=== PATIENT | female | born 1960 ===

== ENCOUNTER → 2022-06-23 12:32 | Outpatient (CLI) | payer BC, SELFPAY ==
[2022-06-23 13:49] LABS: Influenza A - CEPHEID Flu A NEGATIVE (NEGATIVE); Influenza B - CEPHEID Flu B NEGATIVE (NEGATIVE)
[2022-06-23 13:53] LABS: COVID-19 CEPHEID 4-PLEX PCR Negative (Negative)
== END ==
PROVIDERS: Visit Provider Student in an Organized Health Care Education/Training Program
DX: R21 Rash and other nonspecific skin eruption (principal)
CPT/HCPCS: 0240U

== ENCOUNTER → 2022-10-07 07:37 | Outpatient (CLI) | payer BC, SELFPAY ==
[2022-10-07 08:03] LABS: Hematocrit 36.8 % (36-46); Hemoglobin 12.6 g/dL (12.0-16.0); Mean Corpuscular HGB Conc 34.3 % (30-36); Mean Corpuscular Hemoglobin 28.6 PG (26-34); Mean Corpuscular Volume 83.5 fL (80-100); Platelet Count 246 X10^3/uL (150-400); Red Blood Cell Count 4.41 X10^6/uL (4.0-5.2); Red Cell Distribution Width 14.4 % (11.6-14.8); White Blood Cell Count 5.8 X10^3/uL (4.5-11.0)
[2022-10-07 09:13] LABS: Alanine Aminotransferase 21 IU/L (<35); Albumin 4.2 g/dL (3.5-5.0); Albumin Globulin Ratio 1.6 (1.0-2.8); Alkaline Phosphatase 63 U/L (38-126); Aspartate Aminotransferase 32 IU/L (14-36); Bilirubin Total 0.9 mg/dL (0.2-1.3); Blood Urea Nitrogen 13 mg/dL (7-17); Calcium 9.2 mg/dL (8.4-10.2); Carbon Dioxide 26 mmol/L (22-32); Chloride 104 mmol/L (98-107); Cholesterol 195 mg/dL (140-199); Estimated Glomerular Filt Rate > 60 mL/min (>60); Globulin 2.7 g/dL (1.7-4.1); Glucose 83 mg/dL (80-110); HDL Cholesterol 74 mg/dL (40-60); HEMOLYSIS < 15 (0-50); LDL Cholesterol Calculated 107 mg/dL (<100); Potassium 3.9 mmol/L (3.4-5.1); Sodium 140 mmol/L (137-145); Total Protein 6.9 g/dL (6.3-8.2); Triglycerides 70 mg/dL (35-150)
[2022-10-07 09:26] LABS: Free T3, Triiodothyronine Free 3.76 pg/mL (2.77-5.27); Free T4, Direct Thyroxine 1.31 ng/dL (0.78-2.19)
[2022-10-07 09:39] LABS: Thyroid Stimulating Hormone 5.56 uIU/mL (0.47-4.68)
[2022-10-07 09:58] LABS: Hep C Virus Ab w/Reflex Quant NEGATIVE s/c (NEGATIVE)
== END ==
PROVIDERS: PCP Nurse Practitioner; Referring Provider Nurse Practitioner; Visit Provider Nurse Practitioner
DX: Z00.00 Encounter for general adult medical examination without abnormal findings (principal); Z11.59 Encounter for screening for other viral diseases
CPT/HCPCS: 36415; 80053; 80061; 84439; 84443; 84481; 85027; 86803

== ENCOUNTER → 2023-10-24 07:56 | Outpatient (CLI) | payer BC, SELFPAY ==
[2023-10-24 08:43] LABS: Hematocrit 38.3 % (36-46); Hemoglobin 13.1 g/dL (12.0-16.0); Mean Corpuscular HGB Conc 34.2 % (30-36); Mean Corpuscular Hemoglobin 28.8 PG (26-34); Mean Corpuscular Volume 84.4 fL (80-100); Platelet Count 242 X10^3/uL (150-400); Red Blood Cell Count 4.54 X10^6/uL (4.0-5.2); Red Cell Distribution Width 14.3 % (11.6-14.8); White Blood Cell Count 5.9 X10^3/uL (4.5-11.0)
[2023-10-24 09:08] LABS: Alanine Aminotransferase 16 IU/L (<35); Albumin 4.3 g/dL (3.5-5.0); Albumin Globulin Ratio 1.4 (1.0-2.8); Alkaline Phosphatase 51 U/L (38-126); Aspartate Aminotransferase 30 IU/L (14-36); BUN Creatinine Ratio 22.2 (6-22); Bilirubin Total 0.8 mg/dL (0.2-1.3); Blood Urea Nitrogen 14 mg/dL (7-17); Calcium 9.4 mg/dL (8.4-10.2); Carbon Dioxide 27 mmol/L (22-32); Chloride 108 mmol/L (98-107); Cholesterol 224 mg/dL (140-199); Estimated Glomerular Filt Rate > 60 mL/min (>60); Glucose 95 mg/dL (80-110); HDL Cholesterol 79 mg/dL (40-60); HEMOLYSIS < 15 (0-50); LDL Cholesterol Calculated 130 mg/dL (<100); Sodium 141 mmol/L (137-145); Total Protein 7.3 g/dL (6.3-8.2); Triglycerides 74 mg/dL (35-150)
[2023-10-24 09:18] LABS: Creatinine Urine Random 170.7 mg/dL
[2023-10-24 09:21] LABS: Microalbumi Creatinin Ratio Ur 6.4 ug/mg CR (<30); Microalbumin Urine Random 1.1 mg/dL (0-1.6)
[2023-10-24 11:14] LABS: Free T4, Direct Thyroxine 0.96 ng/dL (0.78-2.19)
[2023-10-24 11:28] LABS: Thyroid Stimulating Hormone 7.73 uIU/mL (0.47-4.68)
[2023-10-24 16:42] LABS: HIV 1 & 2 Ab/Ag 4th Gen Combo NEGATIVE (NEGATIVE)
== END ==
PROVIDERS: PCP Nurse Practitioner; Referring Provider Nurse Practitioner; Visit Provider Nurse Practitioner
DX: Z00.00 Encounter for general adult medical examination without abnormal findings (principal)
CPT/HCPCS: 36415; 80053; 80061; 82043; 82570; 84439; 84443; 85027; 87389

== ENCOUNTER 2024-03-05 09:36 | Day surgery (SDC) | payer BC, SELFPAY ==
[2024-03-05 10:02] VITALS: BP 134/72; PULSE 92; RESP 18; TEMP 37.2; O2SAT 99
[2024-03-05] MEDS: LACTATED RINGERS 1,000 ML 42 ML IV (10:04)
--- NOTE | 2024-03-05 10:06 | PM.HP.1 ---
History of Present Illness History of Present Illness Date Patient Seen: 03/05/24 Time Patient Seen: 10:07 Date of Onset of Symptoms: 03/05/24 Chief complaint: Screening Colonoscopy Narrative: 63-year-old woman here for 1st time screening colonoscopy. No family history of colon cancer. She describes having more ?stomach aches? over the past year. PFS Medical History Elevated low density lipoprotein (LDL) cholesterol level Insomnia associated with menopause Vision disorder Hearing decreased Rosacea (~2011) Chronic back pain Chicken pox Anxiety and depression Lichen sclerosus Surgical History History of back surgery (~2006) History of cataract removal with insertion of prosthetic lens Family History Father History of heart disease Mother Cancer Grandfather History of heart disease Social History Smoking Status: Former smoker alcohol intake: never Meds Home Medications and Allergies Home Medications Medication Instructions Recorded Confirmed Type clobetasol 0.05 % topical cream 1 applic topical QAM AND QPM PRN 10/11/22 12/13/23 Rx itching #30 grams estradiol 10 mcg vaginal tablet 10 mcg vaginal 3XW #36 tabs 10/18/23 12/13/23 Rx metronidazole 0.75 % lotion 1 applic topical BID #59 mL 10/18/23 12/13/23 Rx ([employer]otion) baclofen 5 mg tablet See Rx Instructions .Route 12/11/23 03/05/24 Rx .COMPLEX #60 tabs acetaminophen 500 mg tablet 500 mg PO Q6H PRN Pain (Scale 03/05/24 03/05/24 History Score 4-6) Allergies Allergy/AdvReac Type Severity Reaction Status Date / Time macadamia nut oil Allergy Intermediate Difficulty Verified 03/05/24 09:51 Breathing Exam Vital Signs (past 8 hours): - 03/05/24 10:02 Temperature 98.9 F Pulse Rate 92 H Respiratory Rate 18 Blood Pressure 134/72 Pulse Oximetry 99 Oxygen Delivery Method Room Air Oxygen Delivery Method Room Air Narrative Exam Narrative: General adult woman alert oriented no acute distress Chest nonlabored respiration Extremities warm well perfused Assessment & Plan Assessment & Plan narrative: The patient requires colorectal screening and colonoscopy is recommended. Technical details were discussed. Risks, benefits, alternatives explained. Risks including but not limited to myocardial infarction, aspiration, bleeding, pain, missed lesion, incomplete examination, need for further radiographic studies, intestinal injury, and need for major abdominal surgery were discussed. All questions were answered to their satisfaction, and they are in agreement with this plan. Time-Based Coding :: [TOTAL MINUTES] spent with patient and on the chart (including review of chart, obtaining history, exam, reviewing outside data, placing orders, documenting exam and treatment plan, and counseling patient) on [DATE].
--- NOTE | 2024-03-05 10:16 | P.OP.COLON_ITS ---
Operative Date/Time/Diagnoses Date of procedure: 03/05/24 Time of procedure: 10:17 Pre-op diagnosis: Colorectal screening Procedure & Clinicians Study performed: Screening colonoscopy Same procedure as scheduled: Yes Indications: Colorectal screening Surgeon: Shay Treadwell Procedure Notes Procedure in detail: The history and physical was performed/updated and the patient is ASA class is 2. The procedure was discussed in detail with the patient. Potential risks co mplications including infection, bleeding, missed diagnosis, perforation, need for surgery, and were explained. Their questions were answered and informed consent was obtained. Patient was brought to the procedure room and placed standard monitoring equipment. The patient's vital signs were monitored continuously throughout the entire procedure. Prior to starting time-out was performed. The patient was placed in the left lateral recumbent position. Procedural sedation was administered by anesthesia. Examination began with a thorough inspection of the perianal area there was no evidence of fissures, fistulae, external hemorrhoids or cutaneous malignancy. The colonoscopy scope was then placed into the anal canal and was advanced to the cecum, which was identified by the ileocecal valve, the appendiceal orifice and the confluence of the taenia. The scope was then slowly withdrawn examining colon thoroughly in all directions, irrigating it of any residual stool. The scope was retroflexed within the rectum The patient tolerated the procedure well. They will be discharged once criteria are met. The prep was of good/excellent quality. The withdrawl time was 7 minutes. FINDINGS * Normal healthy colonic mucosa mass or polyps. * Internal hemorrhoids Specimen(s): none sent Impression: Normal colonoscopy Post-procedure Recommendations: Colonoscopy in 10 years Disposition: same day surgery
[2024-03-05 10:38] VITALS: BP 105/64; PULSE 78; RESP 15; TEMP 36.3; O2SAT 98
[2024-03-05 10:43] VITALS: BP 94/60; PULSE 78; RESP 21; O2SAT 99
[2024-03-05 10:48] VITALS: BP 101/64; PULSE 74; RESP 16; O2SAT 99
[2024-03-05 10:53] VITALS: BP 111/74; PULSE 80; RESP 13; TEMP 36.3; O2SAT 100
== END 2024-03-05 11:02 | disposition home or self-care (01) ==
PROVIDERS: PCP Nurse Practitioner; Referring Provider Surgery; Visit Provider Surgery
PROC: 0DJD8ZZ Inspection of Lower Intestinal Tract, Via Natural or Artificial Opening Endoscopic (ICD-10-PCS; CPT 45378; principal; 2024-03-05 10:15)
DX: Z12.11 Encounter for screening for malignant neoplasm of colon (principal); K64.8 Other hemorrhoids
CPT/HCPCS: 45378; J2704

== ENCOUNTER → 2024-11-14 15:38 | Outpatient (CLI) | payer BC, SELFPAY ==
[2024-11-14 16:27] LABS: Influenza A - CEPHEID Flu A NEGATIVE (NEGATIVE); Influenza B - CEPHEID Flu B NEGATIVE (NEGATIVE); Respiratory Syncytial Virus Negative (Negative)
[2024-11-14 16:53] LABS: COVID-19 CEPHEID 4-PLEX PCR Negative (Negative)
== END ==
PROVIDERS: PCP Nurse Practitioner Family; Visit Provider Nurse Practitioner Family
DX: R53.83 Other fatigue (principal); R09.81 Nasal congestion; R51.9 Headache, unspecified
CPT/HCPCS: 0241U